=== PATIENT | female | born 1995 | race Caucasian/White ===

== ENCOUNTER 2017-03-05 08:31 | Emergency (ER) | payer SELFPAY ==
[~2017-03-05] VITALS: Ht 162.6 cm; Wt 79.0 kg
[2017-03-05 09:21] VITALS: BP 131/72
[2017-03-05] MEDS ORDERED: CLEO300C2 PO (09:29)
[2017-03-05] MEDS ORDERED: IBUP-1022 PO (09:29)
== END 2017-03-05 09:45 | disposition home or self-care (01) ==
LOC: M ED 08:31
DX: K13.79 Other lesions of oral mucosa (principal); M53.3 Sacrococcygeal disorders, not elsewhere classified; Z88.0 Allergy status to penicillin; Z88.5 Allergy status to narcotic agent

== ENCOUNTER 2017-06-10 23:27 | Emergency (ER) | payer SELFPAY ==
[2017-06-11] MEDS: NORCO 5/325MG TABLET (BULK FOR ED) PO (00:40)
[2017-06-11] MEDS: CLINDAMYCIN 150 MG CAP PO (00:40)
== END 2017-06-11 00:53 | disposition home or self-care (01) ==
LOC: M ED 23:27
DX: K02.7 Dental root caries (principal); F17.200 Nicotine dependence, unspecified, uncomplicated; Z88.0 Allergy status to penicillin; Z88.5 Allergy status to narcotic agent
CPT/HCPCS: 99282

== ENCOUNTER 2017-10-23 04:52 | Emergency (ER) | payer SELFPAY ==
[2017-10-23] MEDS: KETOROLAC 60 MG/2 ML VIAL (J1885) IM (06:15)
== END 2017-10-23 06:37 | disposition home or self-care (01) ==
LOC: M ED 04:52
DX: M65.241 Calcific tendinitis, right hand (principal); Z88.0 Allergy status to penicillin; Z88.5 Allergy status to narcotic agent
CPT/HCPCS: J1885

== ENCOUNTER 2017-10-24 00:13 | Emergency (ER) | payer SELFPAY | END 2017-10-24 01:22 | disposition left against medical advice (07) | LOC: M ED 00:13 | DX: S69.90XA Unspecified injury of unspecified wrist, hand and finger(s), initial encounter (principal); Z53.21 Procedure and treatment not carried out due to patient leaving prior to being seen by health care provider ==

== ENCOUNTER 2017-10-24 18:47 | Emergency (ER) | payer SELFPAY ==
[2017-10-24] MEDS: OXYCODONE/APAP 5MG/325MG(BULK FOR ED) 1 TABLET PO (19:15)
== END 2017-10-24 19:36 | disposition home or self-care (01) ==
LOC: M ED 18:47
DX: S60.221A Contusion of right hand, initial encounter (principal); W10.8XXA Fall (on) (from) other stairs and steps, initial encounter; Y92.89 Other specified places as the place of occurrence of the external cause; Z88.0 Allergy status to penicillin; Z88.5 Allergy status to narcotic agent
CPT/HCPCS: 99282

== ENCOUNTER 2018-01-24 20:30 | Emergency (ER) | payer MEDICAID, SELFPAY ==
[2018-01-24] MEDS: OXYCODONE/APAP 5MG/325MG(BULK FOR ED) 1 TABLET PO ×2 (22:00)
[2018-01-24] MEDS: CLINDAMYCIN 150 MG CAP PO ×2 (22:00)
== END 2018-01-24 22:05 | disposition home or self-care (01) ==
LOC: M ED 20:30
DX: K02.9 Dental caries, unspecified (principal); J45.909 Unspecified asthma, uncomplicated; Z88.0 Allergy status to penicillin; Z88.5 Allergy status to narcotic agent
CPT/HCPCS: 99283

== ENCOUNTER 2018-05-23 18:15 | Emergency (ER) | payer MEDICAID ==
[~2018-05-23] VITALS: Ht 160 cm; Wt 68.2 kg
[~2018-05-23 18:15] MED LIST: ACET500T15 PO; CLEO300C2 PO; IBUP-1022 PO; PERC5TAB12 PO; TYLE650T35 PO
[2018-05-23 18:16] VITALS: BP 132/76
--- NOTE | 2018-05-23 20:09 | ECGEPIP ---
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
== END 2018-05-23 22:15 | disposition left against medical advice (07) ==
LOC: M ED 18:15
DX: Z53.21 Procedure and treatment not carried out due to patient leaving prior to being seen by health care provider (principal)

== ENCOUNTER 2018-08-29 12:26 | Day surgery (SDC) | payer OTHER ==
[~2018-08-29] VITALS: Ht 162.6 cm; Wt 74.4 kg
[~2018-08-29 12:26] MED LIST changes: +CHLOROPROCAINE 2 % INJ PRES.FREE 20 ML VIAL (J2400) As Ordered ONE; +CLIN300C5; +LIDOCAINE 1% MDV 20ML VIAL SQ PRN; +LR 1,000 ML IV ONE; +MIDAZOLAM INJ 2 MG/2 ML VIAL (J2250) As Ordered ONE; +ONDANSETRON 4MG/2ML VIAL (J2405) As Ordered ONE; +PERI12LIQ; +PROPOFOL 200 MG/20 ML VIAL As Ordered ONE
[2018-08-29 12:56] LABS: URINE PREG TEST NEGATIVE (NEGATIVE)
[2018-08-29] MEDS ORDERED: PERCOCET 5MG/325MG TAB As Ordered ONE (14:03)
[2018-08-29] MEDS: PERCOCET 5MG/325MG TAB PO PRN ×2 (14:05→14:37)
[2018-08-29] MEDS ORDERED: fentaNYL 100 MCG/2 ML INJECTION (J3010) IV PRN (14:15)
[2018-08-29] MEDS ORDERED: HYDROMORPHONE HCL 0.5 MG/ 0.5 ML SYRINGE (J1170 PER 1) IV PRN (14:15)
[2018-08-29] MEDS ORDERED: NORCO, ANEXSIA 5/325MG TABLET (HYDROcodone/ACETAMINOPHEN) PO PRN (14:15)
[2018-08-29] MEDS ORDERED: ONDANSETRON 4MG/2ML VIAL (J2405) IV PRN (14:15)
[2018-08-29] MEDS ORDERED: LR 1,000 ML IV SCH (14:15)
--- NOTE | 2018-08-29 14:24 | RO ---
DATE OF PROCEDURE: 08/29/2018 PREOPERATIVE DIAGNOSIS: Pilonidal cyst. POSTOPERATIVE DIAGNOSIS: Pilonidal cyst. PROCEDURE: Pilonidal cystectomy. SURGEON: Dioni Escamilla DO PREDATOR CONTROL TRAPPER: None. ANESTHESIA: Spinal. ESTIMATED BLOOD LOSS: 2 mL. COMPLICATIONS: None. INDICATION FOR PROCEDURE: Patient is a 22-year-old female with a persistent infected pilonidal cyst for many years. She has had it incised and drained multiple times. Recommendation now is to proceed with excision. Risks and benefits of procedure not limited to but including bleeding, infection, damage to surrounding structures, need for further surgery were discussed in detail with the patient. Informed consent was obtained and procedure was planned. PROCEDURE: The patient brought back to operating room 3. After sufficient sedation the perineal area was sterilely prepped and draped with Betadine. Next, a time out was done to confirm proper patient and proper procedure. Following that an elliptical incision was made using a 15 blade scalpel. Incision was then carried down through the skin and subcutaneous tissue using electrocautery circumferentially in an elliptical shape until the presacral fascia was reached. Once this was reached the cyst was removed intact along with its sinus tracts. Electrocautery was then used to control hemostasis in the wound bed. Once that was all completed, it was packed with 4 x 4's, covered with more 4x4s and tape thus ending procedure. The patient tolerated the procedure well and was sent to the postanesthesia care unit (PACU) in stable condition.
[2018-08-29 15:30] VITALS: BP 141/67
== END 2018-08-29 15:40 | disposition home or self-care (01) ==
LOC: M SDC 12:26
PROVIDERS: ATTEND Surgery
DX: L05.91 Pilonidal cyst without abscess (principal); J45.909 Unspecified asthma, uncomplicated; F41.9 Anxiety disorder, unspecified; Z91.040 Latex allergy status; Z79.899 Other long term (current) drug therapy; Z88.0 Allergy status to penicillin; Z88.8 Allergy status to other drugs, medicaments and biological substances
CPT/HCPCS: 11770; 84703; 88304; J2250; J2400; J2405

== ENCOUNTER 2018-09-02 19:19 | Emergency (ER) | payer OTHER ==
[~2018-09-02] VITALS: Ht 162.6 cm; Wt 73.2 kg
[~2018-09-02 19:19] MED LIST changes: -CHLOROPROCAINE 2 % INJ PRES.FREE 20 ML VIAL (J2400) As Ordered ONE; -LIDOCAINE 1% MDV 20ML VIAL SQ PRN; -LR 1,000 ML IV ONE; -MIDAZOLAM INJ 2 MG/2 ML VIAL (J2250) As Ordered ONE; -ONDANSETRON 4MG/2ML VIAL (J2405) As Ordered ONE; -PROPOFOL 200 MG/20 ML VIAL As Ordered ONE
[2018-09-02] MEDS ORDERED: HYDR-3713 PO (19:29)
[2018-09-02] MEDS ORDERED: PERCOCET 5MG/325MG TAB PO ONE (20:00)
[2018-09-02 20:16] LABS: BASO # 0.1 10^3/uL (0.0-0.2); BASO % 0.6 % (0.0-1.0); EOS # 0.2 10^3/uL (0.0-0.50); HEMATOCRIT 39.7 % (36.0-47.0); HEMOGLOBIN 12.9 g/dl (12.0-15.5); LYMPH # 2.1 10^3/uL (1.5-6.5); LYMPH % 23.9 % (24.0-44.0); MEAN CORPUSCULAR HEMOGLOBIN 29.8 pg (27.0-33.0); MEAN CORPUSCULAR HGB CONC 32.5 g/dl (32.0-36.5); MEAN CORPUSCULAR VOLUME 91.7 fl (80.0-96.0); MONO # 0.5 10^3/uL (0.0-0.8); MONO % 5.8 % (0.0-5.0); NEUTROPHILS # 5.8 10^3/uL (1.8-7.7); NEUTROPHILS % 67.5 % (36.0-66.0); PLATELET COUNT, AUTOMATED 242 10^3/uL (150-450); RED BLOOD COUNT 4.33 10^6/uL (4.00-5.40); WHITE BLOOD COUNT 8.6 10^3/uL (4.0-10.0)
[2018-09-02 20:45] LABS: BLOOD UREA NITROGEN 7 MG/DL (7-18); CALCIUM LEVEL 9.2 MG/DL (8.5-10.1); CARBON DIOXIDE LEVEL 30 MEQ/L (21-32); CHLORIDE LEVEL 109 MEQ/L (98-107); CREATININE FOR GFR 0.65 MG/DL (0.55-1.30); GLOMERULAR FILTRATION RATE > 60.0 (>60); GLUCOSE, FASTING 82 MG/DL (70-100); POTASSIUM SERUM 3.9 MEQ/L (3.5-5.1); SODIUM LEVEL 142 MEQ/L (136-145)
[2018-09-02 20:52] LABS: INR 1.1; PROTHROMBIN TIME 14.3 SECONDS (12.1-14.4)
[2018-09-02 20:53] LABS: PARTIAL THROMBOPLASTIN TIME 33.1 SECONDS (25.4-37.6)
[2018-09-02] MEDS ORDERED: LIDOCAINE W/EPINEPHRINE 1% 20ML VIAL As Ordered ONE (21:14)
[2018-09-02] MEDS ORDERED: LIDOCAINE W/EPINEPHRINE 1% 20ML VIAL SC ONE (21:15)
[2018-09-02 22:39] VITALS: BP 129/85
--- NOTE | 2018-09-03 17:29 | CR ---
DATE OF CONSULTATION: 09/02/2018 REASON FOR CONSULTATION: Bleeding post surgical wound. HISTORY OF PRESENT ILLNESS: The patient is a 22-year-old woman who has a history of prior pilonidal cyst infections. She had undergone several incision and drainages. On August 29, a pilonidal cystectomy was performed by Dr. Escamilla. The patient was discharged home to do wound care at home with gauze packing. She had been doing okay, though she found the dressings quite . On the afternoon of September 02, she had her dressing changed but then noted bleeding with bleeding through the dressing and running down her leg. Her friend changed the dressing apparently, but it continued to bleed, and she was brought to the emergency department for evaluation. She was noted to have continued oozing from the wound, and I was contacted to evaluate this. ALLERGIES: Reported to PENICILLIN, LATEX, and TRAMADOL. CURRENT MEDICATION: Some [place] as needed for wound pain. MEDICAL HISTORY: The patient denies any known hematologic or coagulation problem. Medical history is significant for some anxiety and a history of panic attacks. She has a history of asthma but has not had any recent issues. Does have a history of some headaches. SURGICAL HISTORY: Significant only for her pilonidal cystectomy. PHYSICAL EXAMINATION: Reveals a young, generally healthy appearing but uncomfortable woman lying quietly on her stomach on the emergency room stretcher. Physical exam is limited to her back, upper buttocks, and gluteal cleft. Examination shows some gauze pads with a large amount of blood over the wound. Packing in the wound is removed. There appear to be two small bleeding points in the deep dermis or subcutaneous tissues along the left side of the wound. She has an open wound approximately 6 cm in length x 3-4 cm in width, which was down to the sacral fascia. IMPRESSION: Bleeding pilonidal cystectomy wound. PLAN: The patient was counseled that we needed to stop her from bleeding. Initially the wound was filled with some gauze soaked with 1% Xylocaine with epinephrine. After allowing this to sit for a few minutes, some additional local anesthesia was infiltrated at the site of the two bleeding areas along the left side of her wound. A [id number] sutures of 4-0 chromic were then placed at these two bleeding sites with cessation of any bleeding. Further inspection of the wound showed no other points of bleeding. The wound was then filled loosely with some saline-moistened gauze, and while I was doing that I instructed the patient's friend and hygiene assistant in wound care on how best to fill the wound. The patient will be discharged home and can use her current pain medications as necessary. I advised them to leave the current dressing in the wound until tomorrow morning and then change it and to use saline-moistened gauze going forward daily and as needed. They should keep their scheduled followup with Dr. Escamilla.
== END 2018-09-02 23:17 | disposition home or self-care (01) ==
LOC: M ED 19:54
DX: L76.21 Postprocedural hemorrhage of skin and subcutaneous tissue following a dermatologic procedure (principal); M54.9 Dorsalgia, unspecified; J45.909 Unspecified asthma, uncomplicated; Z87.891 Personal history of nicotine dependence; Z88.0 Allergy status to penicillin; Z88.5 Allergy status to narcotic agent; Z91.040 Latex allergy status

== ENCOUNTER 2022-01-15 09:46 | Emergency (ER) | payer OTHER ==
[~2022-01-15] VITALS: Ht 160 cm; Wt 77.0 kg
[2022-01-15 09:46] VITALS: BP 163/93
[~2022-01-15 09:46] MED LIST changes: +ACET650T61 PO; +CLIN-250; -CLIN300C5; +HYDR-3713 PO; -TYLE650T35 PO
[2022-01-15] MEDS ORDERED: DIVA500T94 (09:54)
== END 2022-01-15 11:51 | disposition left against medical advice (07) ==
LOC: M ED 09:46
DX: Z53.21 Procedure and treatment not carried out due to patient leaving prior to being seen by health care provider (principal); S99.912A Unspecified injury of left ankle, initial encounter

== ENCOUNTER 2022-02-11 06:02 | Emergency (ER) | payer OTHER ==
[~2022-02-11] VITALS: Ht 160 cm; Wt 76.1 kg
[2022-02-11 06:02] VITALS: BP 156/88
[~2022-02-11 06:02] MED LIST changes: +DIVA500T94
== END 2022-02-11 06:26 | disposition left against medical advice (07) ==
LOC: M ED 06:02
DX: Z53.21 Procedure and treatment not carried out due to patient leaving prior to being seen by health care provider (principal)

== ENCOUNTER 2022-02-21 12:31 | Emergency (ER) | payer OTHER ==
[~2022-02-21] VITALS: Ht 160 cm; Wt 74.9 kg
[2022-02-21] MEDS ORDERED: ALBU8.5H (12:38)
[2022-02-21] MEDS ORDERED: IBUP-1114 PO (12:39)
[2022-02-21 13:16] LABS: BASO % 0.4 % (0.0-1.0); EOS % 0.4 % (0.0-3.0); HEMATOCRIT 41.5 % (36.0-47.0); LYMPH # 1.2 10^3/uL (1.5-5.0); LYMPH % 11.7 % (24.0-44.0); MEAN CORPUSCULAR HEMOGLOBIN 29.7 pg (27.0-33.0); MEAN CORPUSCULAR HGB CONC 31.3 g/dl (32.0-36.5); MONO # 0.6 10^3/uL (0.0-0.8); NEUTROPHILS # 8.3 10^3/uL (1.5-8.5); NEUTROPHILS % 81.1 % (36.0-66.0); PLATELET COUNT, AUTOMATED 244 10^3/uL (150-450); RED BLOOD COUNT 4.37 10^6/uL (4.00-5.40); WHITE BLOOD COUNT 10.2 10^3/uL (4.0-10.0)
[2022-02-21 13:37] LABS: HCG, SERUM QUANTITATIVE 26.8 MIU/ML (<4.2)
[2022-02-21 13:42] LABS: BLOOD UREA NITROGEN 8 MG/DL (9-23); CALCIUM LEVEL 9.6 MG/DL (8.5-10.1); CARBON DIOXIDE LEVEL 23 MMOL/L (20-31); CHLORIDE LEVEL 108 MMOL/L (98-107); CREATININE FOR GFR 0.64 MG/DL (0.55-1.30); GLOMERULAR FILTRATION RATE > 60.0 (>60); GLUCOSE, FASTING 98 MG/DL (60-100); POTASSIUM SERUM 3.9 MMOL/L (3.5-5.1); SODIUM LEVEL 140 MMOL/L (136-145)
[2022-02-21] MEDS ORDERED: NS 1,000 ML IV ONE (14:50)
[2022-02-21 16:01] VITALS: BP 157/82
== END 2022-02-21 16:23 | disposition home or self-care (01) ==
LOC: M ED 12:31
DX: O03.4 Incomplete spontaneous abortion without complication (principal); J45.909 Unspecified asthma, uncomplicated; F31.9 Bipolar disorder, unspecified; F41.0 Panic disorder [episodic paroxysmal anxiety]; F17.290 Nicotine dependence, other tobacco product, uncomplicated; Z88.0 Allergy status to penicillin; Z88.5 Allergy status to narcotic agent; Z91.040 Latex allergy status; Z80.41 Family history of malignant neoplasm of ovary; Z79.899 Other long term (current) drug therapy
CPT/HCPCS: 76801; 80048; 84702; 85025; 86850; 86900; 86901; 88305; 93976; 96360; 99284; S0191

== ENCOUNTER 2022-03-29 12:56 | Emergency (ER) | payer OTHER ==
[~2022-03-29] VITALS: Ht 160 cm; Wt 74.9 kg
[2022-03-29 12:56] VITALS: BP 116/60
[~2022-03-29 12:56] MED LIST changes: +ALBU8.5H; +IBUP-1114 PO
[2022-03-29] MEDS ORDERED: LARI1TAB3 (13:11)
[2022-03-29 13:56] LABS: HEMATOCRIT 40.1 % (36.0-47.0); HEMOGLOBIN 12.6 g/dl (12.0-15.5); MEAN CORPUSCULAR HGB CONC 31.4 g/dl (32.0-36.5); MEAN CORPUSCULAR VOLUME 95.5 fl (80.0-96.0); PLATELET COUNT, AUTOMATED 208 10^3/uL (150-450); WHITE BLOOD COUNT 7.2 10^3/uL (4.0-10.0)
== END 2022-03-29 16:20 | disposition left against medical advice (07) ==
LOC: M ED 15:12
DX: N93.9 Abnormal uterine and vaginal bleeding, unspecified (principal); R42 Dizziness and giddiness; R35.0 Frequency of micturition; J45.909 Unspecified asthma, uncomplicated; F17.200 Nicotine dependence, unspecified, uncomplicated; Z88.0 Allergy status to penicillin; Z91.040 Latex allergy status; Z88.5 Allergy status to narcotic agent; Z79.3 Long term (current) use of hormonal contraceptives

== ENCOUNTER 2022-07-15 01:13 | Emergency (ER) | payer OTHER ==
[~2022-07-15] VITALS: Ht 160 cm; Wt 69.3 kg
[~2022-07-15 01:13] MED LIST changes: +LARI1TAB3
[2022-07-15 01:14] VITALS: BP 149/96
[2022-07-15 02:59] LABS: BASO # 0.1 10^3/uL (0.0-0.2); BASO % 0.5 % (0.0-1.0); EOS # 0.1 10^3/uL (0.0-0.5); EOS % 0.5 % (0.0-3.0); HEMATOCRIT 42.7 % (36.0-47.0); HEMOGLOBIN 13.7 g/dl (12.0-15.5); LYMPH # 1.9 10^3/uL (1.5-5.0); LYMPH % 15.7 % (24.0-44.0); MEAN CORPUSCULAR HEMOGLOBIN 29.2 pg (27.0-33.0); MEAN CORPUSCULAR HGB CONC 32.1 g/dl (32.0-36.5); MONO # 0.8 10^3/uL (0.0-0.8); MONO % 6.7 % (2.0-8.0); NEUTROPHILS # 9.1 10^3/uL (1.5-8.5); NEUTROPHILS % 76.3 % (36.0-66.0); PLATELET COUNT, AUTOMATED 263 10^3/uL (150-450); RED BLOOD COUNT 4.69 10^6/uL (4.00-5.40); WHITE BLOOD COUNT 11.9 10^3/uL (4.0-10.0)
[2022-07-15 03:10] LABS: INR 1.03; PROTHROMBIN TIME 13.7 SECONDS (12.5-14.5)
[2022-07-15 03:37] LABS: CPK CREATINE PHOSPHOKINASE 74 U/L (34-145)
[2022-07-15 03:39] LABS: BLOOD UREA NITROGEN < 5 MG/DL (9-23); CALCIUM LEVEL 10.2 MG/DL (8.5-10.1); CARBON DIOXIDE LEVEL 25 MMOL/L (20-31); CHLORIDE LEVEL 105 MMOL/L (98-107); CK-MB VALUE MASS < 1.0 NG/ML (<3.6); CREATININE FOR GFR 0.56 MG/DL (0.55-1.30); GLOMERULAR FILTRATION RATE > 60.0 (>60); GLUCOSE, FASTING 90 MG/DL (60-100); MB/CK RELATIVE INDEX 1.35 (< OR =4); POTASSIUM SERUM 3.4 MMOL/L (3.5-5.1); SODIUM LEVEL 139 MMOL/L (136-145)
== END 2022-07-15 04:41 | disposition left against medical advice (07) ==
LOC: M ED 01:13
DX: Z53.21 Procedure and treatment not carried out due to patient leaving prior to being seen by health care provider (principal)

== ENCOUNTER 2022-10-26 12:26 | Emergency (ER) | payer OTHER ==
[~2022-10-26] VITALS: Ht 160 cm; Wt 66.1 kg
[2022-10-26] MEDS ORDERED: IBUPROFEN 600MG TAB PO ONE (15:10)
[2022-10-26] MEDS ORDERED: ACETAMINOPHEN 500 MG TAB PO ONE (15:50)
[2022-10-26] MEDS ORDERED: LIDOCAINE 4% CREAM 5GM (LMX4) TOP ONE (15:50)
[2022-10-26] MEDS ORDERED: IBUP-1022 PO (16:28)
[2022-10-26] MEDS ORDERED: ANEC4CRE3 TOP (16:28)
[2022-10-26 16:35] VITALS: BP 133/82; TEMP 98.1; O2SAT 98
== END 2022-10-26 16:34 | disposition home or self-care (01) ==
LOC: M ED 12:26
DX: S99.912A Unspecified injury of left ankle, initial encounter (principal); X50.1XXA Overexertion from prolonged static or awkward postures, initial encounter; Y92.098 Other place in other non-institutional residence as the place of occurrence of the external cause; J45.909 Unspecified asthma, uncomplicated; Z88.0 Allergy status to penicillin; Z88.5 Allergy status to narcotic agent; Z91.040 Latex allergy status; Z79.3 Long term (current) use of hormonal contraceptives

== ENCOUNTER 2022-11-28 11:58 | Emergency (ER) | payer OTHER ==
[~2022-11-28] VITALS: Ht 160 cm; Wt 69.5 kg
[~2022-11-28 11:58] MED LIST changes: +ANEC4CRE3 TOP; +RALTEGRAVIR 400 MG TAB (ISENTRESS) PO SCH; +TRUVADA 200MG/300MG TABLET PO SCH
[2022-11-28 11:59] VITALS: BP 142/80; TEMP 98.4
[2022-11-28] MEDS ORDERED: DEPO150I12 IM (12:25)
[2022-11-28 12:37] VITALS: O2SAT 97
[2022-11-28] MEDS ORDERED: EXPOSURE KIT-ADULT 7 DAY SUPPLY PO ONE (13:05)
[2022-11-28] MEDS ORDERED: BOOSTRIX VACCINE (TETANUS/DIPHTH/ACEL. PERTUSSIS) 0.5ML SYR IM.IMMUN ONE (13:05)
[2022-11-28] MEDS ORDERED: metroNIDAZOLE (FLAGYL) 500MG TABLET PO ONE (13:05)
[2022-11-28] MEDS ORDERED: HEPATITIS B VACCINE 20MCG/ML 1ML SYRINGE (ADULT DOSE) IM.IMMUN ONE (13:05)
[2022-11-28] MEDS ORDERED: DOXYCYCLINE HYCLATE 100MG TABLET PO ONE (13:05)
[2022-11-28] MEDS ORDERED: ULIPRISTAL ACETATE 30MG TAB (ELLA) PO ONE (13:05)
[2022-11-28] MEDS ORDERED: GENTAMICIN 240 MG in D5W 50 ML IM ONE (13:15)
[2022-11-28] MEDS ORDERED: AZITHROMYCIN 250MG TABLET PO ONE (13:15)
[2022-11-28] MEDS ORDERED: EMTR1TAB16 PO (13:34)
[2022-11-28] MEDS ORDERED: DOXY100C82 PO (13:34)
[2022-11-28] MEDS ORDERED: RALT40TA PO (13:34)
[2022-11-28] MEDS ORDERED: RALTEGRAVIR 400 MG TAB (ISENTRESS) PO ONE (14:00)
[2022-11-28] MEDS ORDERED: TRUVADA 200MG/300MG TABLET PO ONE (14:00)
[2022-11-28] MEDS ORDERED: GENTAMICIN SULF 80MG/2ML VIAL IM ONE (14:00)
== END 2022-11-28 13:23 | disposition left against medical advice (07) ==
LOC: M ED 11:58
DX: T76.21XA Adult sexual abuse, suspected, initial encounter (principal); F31.9 Bipolar disorder, unspecified; J45.909 Unspecified asthma, uncomplicated; Z88.0 Allergy status to penicillin; Z91.040 Latex allergy status; Z88.8 Allergy status to other drugs, medicaments and biological substances; Z79.899 Other long term (current) drug therapy; Z79.2 Long term (current) use of antibiotics; Z53.9 Procedure and treatment not carried out, unspecified reason

== ENCOUNTER 2023-09-04 01:40 | Emergency (ER) | payer OTHER ==
[~2023-09-04] VITALS: Ht 165.1 cm; Wt 83.8 kg
[2023-09-04 01:40] VITALS: BP 138/79; TEMP 98.4; O2SAT 97
[~2023-09-04 01:40] MED LIST changes: +DEPO150I12 IM; +DOXY100C82 PO; +EMTR1TAB16 PO; +RALT40TA PO; -RALTEGRAVIR 400 MG TAB (ISENTRESS) PO SCH; -TRUVADA 200MG/300MG TABLET PO SCH
== END 2023-09-04 02:35 | disposition left against medical advice (07) ==
LOC: M ED 01:40
DX: Z53.21 Procedure and treatment not carried out due to patient leaving prior to being seen by health care provider (principal)

== ENCOUNTER 2023-09-22 04:47 | Inpatient (IN) | payer OTHER, SELFPAY ==
[~2023-09-22] VITALS: Ht 162.6 cm; Wt 84.0 kg
[2023-09-22 05:25] LABS: BASO # 0.1 10^3/uL (0.0-0.2); BASO % 0.9 % (0.0-1.0); EOS # 0.4 10^3/uL (0.0-0.5); EOS % 3.7 % (0.0-3.0); HEMATOCRIT 41.1 % (36.0-47.0); HEMOGLOBIN 13.5 g/dl (12.0-15.5); LYMPH # 3.9 10^3/uL (1.5-5.0); LYMPH % 38.5 % (24.0-44.0); MEAN CORPUSCULAR HEMOGLOBIN 30.3 pg (27.0-33.0); MEAN CORPUSCULAR HGB CONC 32.8 g/dl (32.0-36.5); MEAN CORPUSCULAR VOLUME 92.2 fl (80.0-96.0); MONO # 0.6 10^3/uL (0.0-0.8); MONO % 6.3 % (2.0-8.0); NEUTROPHILS # 5.1 10^3/uL (1.5-8.5); NEUTROPHILS % 50.2 % (36.0-66.0); PLATELET COUNT, AUTOMATED 276 10^3/uL (150-450); RED BLOOD COUNT 4.46 10^6/uL (4.00-5.40); WHITE BLOOD COUNT 10.1 10^3/uL (4.0-10.0)
[2023-09-22] MEDS: CHARCOAL ACTIVATED LIQUID 25GM/120ML BTL PO ONE ×2 (05:30→05:46)
[2023-09-22 05:44] LABS: ETHYL ALCOHOL (ETHANOL) 0.143 % (0.000-0.010)
[2023-09-22 05:45] LABS: ALBUMIN 4.6 G/DL (3.2-5.2); ALKALINE PHOSPHATASE 82 U/L (46-116); ALT/SGPT 17 U/L (7.0-40); AST/SGOT 10 U/L (<34); BILIRUBIN,DIRECT < 0.1 MG/DL (<0.4); BILIRUBIN,TOTAL 0.3 MG/DL (0.3-1.2); BLOOD UREA NITROGEN 6 MG/DL (9-23); CARBON DIOXIDE LEVEL 25 MMOL/L (20-31); CHLORIDE LEVEL 107 MMOL/L (98-107); CPK CREATINE PHOSPHOKINASE 74 U/L (34-145); CREATININE FOR GFR 0.69 MG/DL (0.55-1.30); GLOMERULAR FILTRATION RATE > 60.0 (>60); GLUCOSE, FASTING 101 MG/DL (60-100); POTASSIUM SERUM 3.8 MMOL/L (3.5-5.1); SALICYLATE LEVEL < 3.0 MG/DL (<30); SODIUM LEVEL 141 MMOL/L (136-145); TOTAL PROTEIN 7.6 G/DL (5.7-8.2)
[2023-09-22 05:49] LABS: THYROID STIMULATING HORMONE 2.785 uIU/ML (0.55-4.78)
[2023-09-22 05:53] LABS: HCG, SERUM QUALITATIVE NEGATIVE (NEGATIVE)
[2023-09-22 06:07] LABS: AMPHETAMINES LEVEL URINE NEGATIVE (NEGATIVE)
[2023-09-22 06:08] LABS: BARBITURATES URINE NEGATIVE (NEGATIVE); BENZODIAZEPINES URINE NEGATIVE (NEGATIVE); COCAINE METABOLITE URINE NEGATIVE (NEGATIVE); METHADONE URINE NEGATIVE (NEGATIVE); OPIATES URINE NEGATIVE (NEGATIVE); PHENCYCLIDINE URINE NEGATIVE (NEGATIVE)
[2023-09-22 06:10] LABS: CANNABINOIDS URINE POSITIVE (NEGATIVE)
[2023-09-22 08:35] LABS: BLOOD UREA NITROGEN 6 MG/DL (9-23); CALCIUM LEVEL 9.4 MG/DL (8.5-10.1); CARBON DIOXIDE LEVEL 25 MMOL/L (20-31); CHLORIDE LEVEL 113 MMOL/L (98-107); CREATININE FOR GFR 0.69 MG/DL (0.55-1.30); GLOMERULAR FILTRATION RATE > 60.0 (>60); GLUCOSE, FASTING 83 MG/DL (60-100); POTASSIUM SERUM 4.4 MMOL/L (3.5-5.1); SALICYLATE LEVEL < 3.0 MG/DL (<30); SODIUM LEVEL 146 MMOL/L (136-145)
[2023-09-22] MEDS: ONDANSETRON 4MG ORAL DISINTEGRATING TAB PO ONE (11:09)
[2023-09-22] MEDS ORDERED: HOME MED LIST COMPLETE! XX SCH ×2 (11:25→21:55)
[2023-09-22] MEDS ORDERED: OLANZapine ORAL DISINTEGRATING TAB 5MG PO PRN (12:30)
[2023-09-22] MEDS ORDERED: MAALOX 30 ML SUSP *UDC PO PRN (12:30)
[2023-09-22] MEDS ORDERED: MOM 30ML SUSPENSION UDC PO PRN (12:30)
[2023-09-22] MEDS: THIAMINE 100 MG TAB PO SCH (12:50)
[2023-09-22] MEDS: MULTIVITAMINS/MINERALS THERAP 1 TAB PO SCH (12:51)
[2023-09-22] MEDS: FOLIC ACID 1MG TAB PO SCH (12:51)
[2023-09-22 15:15] VITALS: BP 122/75; TEMP 98.3; O2SAT 98
[2023-09-22 15:47] VITALS: BP 122/75
[2023-09-22] MEDS: NICOTINE 21MG/24HR 1 EA TRANSDERMAL TD SCH (16:49)
[2023-09-22] MEDS: traZODone 50 MG TAB PO PRN (20:10)
[2023-09-22] MEDS: diphenhydrAMINE 25MG CAP PO PRN (21:36)
[2023-09-22 22:10] VITALS: BP 140/95
[2023-09-22] MEDS: LORazepam 2 MG TAB PO PRN (22:20)
[2023-09-22] MEDS: risperiDONE 0.5 MG TAB PO ONE (23:40)
[2023-09-23 05:11] VITALS: BP 133/63
[2023-09-23 05:20] VITALS: BP 133/63; TEMP 97.1
[2023-09-23] MEDS ORDERED: ALBUTEROL 90 MCG/ACT 8GM HFA INHALER INH PRN (08:00)
[2023-09-23] MEDS: DIVALPROEX 500 MG TAB PO SCH (08:08)
[2023-09-23] MEDS: IBUPROFEN 400MG TAB PO PRN (12:53)
[2023-09-23] MEDS: ACETAMINOPHEN TAB 650MG DOSE (2X325MG) PO PRN (14:51)
[2023-09-23 15:37] VITALS: BP 137/90; TEMP 97.8; O2SAT 96
[2023-09-23 20:00] VITALS: BP 142/66
[2023-09-23] MEDS: NICOTINE POLACRILEX 2 MG GUM PO ONE (20:07)
[2023-09-24 06:08] VITALS: BP 136/84
[2023-09-24 06:28] VITALS: BP 136/89; TEMP 98.2; O2SAT 99
[2023-09-24] MEDS ORDERED: VENTAER INH (08:05)
[2023-09-24] MEDS ORDERED: Multivitamins PO (08:05)
[2023-09-24] MEDS ORDERED: DEPA1TAB3 PO (08:05)
[2023-09-24] MEDS: NICOTINE POLACRILEX 2 MG GUM PO ONE (08:29)
== END 2023-09-24 11:11 | disposition home or self-care (01) | DRG 753 ==
LOC: M ED 04:47 → M ED INP 12:30 → M PSY 15:28
PROVIDERS: ADMIT Student in an Organized Health Care Education/Training Program; ATTEND Student in an Organized Health Care Education/Training Program
DX: F31.9 Bipolar disorder, unspecified (principal); F60.3 Borderline personality disorder; F12.10 Cannabis abuse, uncomplicated; F17.290 Nicotine dependence, other tobacco product, uncomplicated; J45.909 Unspecified asthma, uncomplicated; Z88.0 Allergy status to penicillin; Z88.5 Allergy status to narcotic agent; Z91.040 Latex allergy status; F10.11 Alcohol abuse, in remission; T39.392A Poisoning by other nonsteroidal anti-inflammatory drugs [NSAID], intentional self-harm, initial encounter; F10.129 Alcohol abuse with intoxication, unspecified; Z63.0 Problems in relationship with spouse or partner; Z56.0 Unemployment, unspecified

== ENCOUNTER 2023-12-23 02:14 | Emergency (ER) | payer MEDICAID, OTHER ==
[~2023-12-23] VITALS: Ht 157.5 cm; Wt 86.4 kg
[~2023-12-23 02:14] MED LIST changes: +DEPA1TAB3 PO; +Multivitamins PO; +VENTAER INH
[2023-12-23 02:42] VITALS: BP 162/106; TEMP 97.5
[2023-12-23 03:00] VITALS: O2SAT 98
== END 2023-12-23 03:26 | disposition left against medical advice (07) ==
LOC: M ED 02:14
DX: Z53.21 Procedure and treatment not carried out due to patient leaving prior to being seen by health care provider (principal)

== ENCOUNTER 2023-12-24 19:50 | Emergency (ER) | payer OTHER ==
[~2023-12-24] VITALS: Ht 157.5 cm; Wt 87.2 kg
[2023-12-24 19:56] VITALS: BP 176/89; TEMP 97.3
[2023-12-24 20:25] VITALS: O2SAT 98
== END 2023-12-24 21:30 | disposition left against medical advice (07) ==
LOC: M ED 19:50
DX: Z53.21 Procedure and treatment not carried out due to patient leaving prior to being seen by health care provider (principal)

== ENCOUNTER 2023-12-25 23:29 | Emergency (ER) | payer OTHER ==
[~2023-12-25] VITALS: Ht 157.5 cm; Wt 89.3 kg
[2023-12-26 01:25] LABS: HCG, SERUM QUALITATIVE NEGATIVE (NEGATIVE)
[2023-12-26] MEDS: ONDANSETRON 4MG ORAL DISINTEGRATING TAB PO ONE (01:40)
[2023-12-26] MEDS: KETOROLAC 60MG 2ML VIAL IM ONE (01:43)
[2023-12-26] MEDS ORDERED: ONDA-282 PO (01:55)
[2023-12-26 02:05] VITALS: BP 147/89; TEMP 97.7; O2SAT 100
== END 2023-12-26 02:08 | disposition home or self-care (01) ==
LOC: M ED 23:29
DX: H11.31 Conjunctival hemorrhage, right eye (principal); S00.83XA Contusion of other part of head, initial encounter; Y92.9 Unspecified place or not applicable; Y93.9 Activity, unspecified; Y99.9 Unspecified external cause status; F31.9 Bipolar disorder, unspecified; F12.10 Cannabis abuse, uncomplicated; F17.290 Nicotine dependence, other tobacco product, uncomplicated; Z88.0 Allergy status to penicillin; Z88.5 Allergy status to narcotic agent; Z91.040 Latex allergy status; Z79.51 Long term (current) use of inhaled steroids; Z79.899 Other long term (current) drug therapy
CPT/HCPCS: 70450; 71101; 72125; 72128; 72131; 84703; 96372; 99283; J1885

== ENCOUNTER 2024-01-05 00:53 | Emergency (ER) | payer OTHER ==
[~2024-01-05 00:53] MED LIST changes: +ONDA-282 PO
[2024-01-05] MEDS: NICOTINE POLACRILEX 2 MG GUM PO ONE (03:13)
== END 2024-01-05 03:28 | disposition home or self-care (01) ==
LOC: M ED 00:53 → EDBD 00:53 → M ED 03:28
DX: S01.81XA Laceration without foreign body of other part of head, initial encounter (principal); Y92.9 Unspecified place or not applicable; Y93.9 Activity, unspecified; Y99.9 Unspecified external cause status; F31.9 Bipolar disorder, unspecified; Z88.0 Allergy status to penicillin; Z88.8 Allergy status to other drugs, medicaments and biological substances; Z91.040 Latex allergy status; Z79.51 Long term (current) use of inhaled steroids; Z79.899 Other long term (current) drug therapy

== ENCOUNTER 2024-03-05 00:54 | Emergency (ER) | payer OTHER ==
[~2024-03-05] VITALS: Ht 157.5 cm; Wt 88.1 kg
[2024-03-05] MEDS: KETOROLAC 60MG 2ML VIAL IM ONE (06:38)
[2024-03-05] MEDS: LIDOCAINE 5% (LIDODERM) PATCH TD ONE (06:38)
[2024-03-05 07:23] VITALS: BP 128/73; TEMP 98.4; O2SAT 100
== END 2024-03-05 07:25 | disposition home or self-care (01) ==
LOC: M ED 00:54
DX: M54.50 Low back pain, unspecified (principal); W00.0XXA Fall on same level due to ice and snow, initial encounter; J45.909 Unspecified asthma, uncomplicated; F31.9 Bipolar disorder, unspecified; F17.210 Nicotine dependence, cigarettes, uncomplicated; Z88.0 Allergy status to penicillin; Z88.5 Allergy status to narcotic agent; Z91.040 Latex allergy status; Z79.51 Long term (current) use of inhaled steroids; Z79.899 Other long term (current) drug therapy; Z79.810 Long term (current) use of selective estrogen receptor modulators (SERMs)
CPT/HCPCS: 72110; 96372; 99283; J1885

== ENCOUNTER 2025-03-11 17:19 | Emergency (ER) | payer OTHER ==
[~2025-03-11] VITALS: Ht 160 cm; Wt 74.0 kg
[~2025-03-11 17:19] MED LIST changes: +DIVA-41; -DIVA500T94; +DOXY-442 PO; -DOXY100C82 PO; -IBUP-1022 PO; +IBUP600T42 PO
[2025-03-11 18:23] LABS: BASO # 0.1 10^3/uL (0.0-0.2); BASO % 0.9 % (0.0-1.0); EOS # 0.3 10^3/uL (0.0-0.5); EOS % 2.4 % (0.0-3.0); LYMPH # 1.7 10^3/uL (1.5-5.0); LYMPH % 16.6 % (24.0-44.0); MONO # 0.7 10^3/uL (0.0-0.8); MONO % 7.2 % (2.0-8.0); NEUTROPHILS # 7.5 10^3/uL (1.5-8.5); NEUTROPHILS % 72.5 % (36.0-66.0); PLATELET COUNT, AUTOMATED 270 10^3/uL (150-450)
[2025-03-11 18:46] LABS: CALCIUM LEVEL 10.2 MG/DL (8.5-10.1); CARBON DIOXIDE LEVEL 28 MMOL/L (20-31); CHLORIDE LEVEL 104 MMOL/L (98-107); CREATININE FOR GFR 0.61 MG/DL (0.55-1.30); GLOMERULAR FILTRATION RATE > 90.0 (>60); HCG, SERUM QUANTITATIVE 474.2 MIU/ML (<4.2); POTASSIUM SERUM 4.1 MMOL/L (3.5-5.1); SODIUM LEVEL 138 MMOL/L (136-145)
[2025-03-11 19:39] VITALS: BP 141/90; TEMP 99.1; O2SAT 99
== END 2025-03-11 20:06 | disposition home or self-care (01) ==
LOC: M ED 17:19
DX: O26.851 Spotting complicating pregnancy, first trimester (principal); Z3A.00 Weeks of gestation of pregnancy not specified; O99.341 Other mental disorders complicating pregnancy, first trimester; F31.9 Bipolar disorder, unspecified; Z88.0 Allergy status to penicillin; Z88.5 Allergy status to narcotic agent; Z91.040 Latex allergy status; Z79.51 Long term (current) use of inhaled steroids

== ENCOUNTER → 2025-03-13 | Outpatient (CLI) | payer OTHER ==
[~2025-03-13] MED LIST changes: +MULTTAB20 PO; +NITR100C3 PO
== END ==
LOC: M LAB 18:05
DX: O02.81 Inappropriate change in quantitative human chorionic gonadotropin (hCG) in early pregnancy (principal)

== ENCOUNTER 2025-03-16 03:16 | Emergency (ER) | payer OTHER ==
[~2025-03-16] VITALS: Ht 160 cm; Wt 79.1 kg
[~2025-03-16 03:16] MED LIST changes: -MULTTAB20 PO; -NITR100C3 PO
[2025-03-16 04:09] LABS: APPEARANCE, URINE HAZY (CLEAR); BACTERIA, URINE AUTO NEGATIVE (NEGATIVE); BILIRUBIN, URINE AUTO NEGATIVE (NEGATIVE); BLOOD, URINE BLOOD 2+ (NEGATIVE); GLUCOSE, URINE (UA) AUTO NEGATIVE (NEGATIVE); KETONE, URINE AUTO NEGATIVE (NEGATIVE); LEUKOCYTE ESTERASE, URINE AUTO 2+ (NEGATIVE); MUCUS, URINE SMALL (NEGATIVE); NITRITE, URINE AUTO NEGATIVE (NEGATIVE); PROTEIN, URINE AUTO NEGATIVE (NEGATIVE); RBC, URINE AUTO 1 /HPF (0-3); SPECIFIC GRAVITY URINE AUTO 1.015 (1.002-1.035); SQUAMOUS EPITHELIAL CELL UR AU 7 /HPF (0-6); UROBILINOGEN, URINE AUTO 0.2 mg/dL (0.0-2.0); WBC, URINE AUTO 5 /HPF (0-3)
[2025-03-16 04:11] LABS: BASO # 0.1 10^3/uL (0.0-0.2); BASO % 1.0 % (0.0-1.0); EOS # 0.4 10^3/uL (0.0-0.5); EOS % 4.9 % (0.0-3.0); LYMPH # 2.5 10^3/uL (1.5-5.0); LYMPH % 28.6 % (24.0-44.0); MONO # 0.7 10^3/uL (0.0-0.8); MONO % 7.9 % (2.0-8.0); NEUTROPHILS # 4.9 10^3/uL (1.5-8.5); NEUTROPHILS % 57.4 % (36.0-66.0); PLATELET COUNT, AUTOMATED 230 10^3/uL (150-450)
[2025-03-16 04:18] LABS: HCG, SERUM QUANTITATIVE 405.6 MIU/ML (<4.2)
[2025-03-16 04:20] LABS: ALT/SGPT 17 U/L (7.0-40); AST/SGOT 13 U/L (<34); CALCIUM LEVEL 9.4 MG/DL (8.5-10.1); CARBON DIOXIDE LEVEL 29 MMOL/L (20-31); CHLORIDE LEVEL 108 MMOL/L (98-107); CREATININE FOR GFR 0.69 MG/DL (0.55-1.30); GLOMERULAR FILTRATION RATE > 90.0 (>60); POTASSIUM SERUM 3.9 MMOL/L (3.5-5.1); SODIUM LEVEL 142 MMOL/L (136-145)
[2025-03-16] MEDS ORDERED: MULTTAB20 PO (07:07)
[2025-03-16 10:02] VITALS: BP 134/79; TEMP 98.2; O2SAT 100
[2025-03-21] MEDS ORDERED: NITR100C3 PO (09:10)
== END 2025-03-16 10:16 | disposition home or self-care (01) ==
LOC: M ED 03:16
DX: N83.291 Other ovarian cyst, right side (principal); N83.292 Other ovarian cyst, left side; O34.81 Maternal care for other abnormalities of pelvic organs, first trimester; O20.0 Threatened abortion; O99.321 Drug use complicating pregnancy, first trimester; O99.331 Smoking (tobacco) complicating pregnancy, first trimester; O99.341 Other mental disorders complicating pregnancy, first trimester; O99.511 Diseases of the respiratory system complicating pregnancy, first trimester; J45.909 Unspecified asthma, uncomplicated; F41.9 Anxiety disorder, unspecified; F32.A Depression, unspecified; F12.10 Cannabis abuse, uncomplicated; F17.290 Nicotine dependence, other tobacco product, uncomplicated; Z79.51 Long term (current) use of inhaled steroids; Z79.810 Long term (current) use of selective estrogen receptor modulators (SERMs)

== ENCOUNTER 2025-03-18 13:16 | Emergency (ER) | payer OTHER ==
[~2025-03-18] VITALS: Ht 160 cm; Wt 77.5 kg
[~2025-03-18 13:16] MED LIST changes: +MULTTAB20 PO
[2025-03-18 13:20] VITALS: BP 128/59; TEMP 97.2; O2SAT 100
== END 2025-03-18 17:49 | disposition left against medical advice (07) ==
LOC: M ED 13:16
DX: Z53.21 Procedure and treatment not carried out due to patient leaving prior to being seen by health care provider (principal)

== ENCOUNTER → 2025-03-21 | Outpatient (CLI) | payer OTHER ==
[~2025-03-21] MED LIST changes: +NITR100C3 PO
== END ==
LOC: M LAB 09:25
PROVIDERS: ATTEND Nurse Practitioner Family
DX: O02.81 Inappropriate change in quantitative human chorionic gonadotropin (hCG) in early pregnancy (principal)